=== PATIENT | female | born 1990 | race African-American/Black ===

== ENCOUNTER 2021-01-02 19:26 | Emergency (ER) | payer MEDICAID, SELFPAY ==
[2021-01-02 19:49] VITALS: BP 175/130; PULSE 88; RESP 16; TEMP 36.6; O2SAT 100; BMI 23.0
[2021-01-02] MEDS: Lidocaine HCl 1 % MPF 5 ML VIAL INFILTRATI (21:40)
[2021-01-02] MEDS: cephALEXin 500 MG CAPSULE PO (22:19)
--- NOTE | 2021-01-02 22:33 | ED_ITS ---
HPI - Skin/Abscess/Foreign Bdy General Chief complaint: Skin/Abscess/Foreign Body Stated complaint: piercing removal Time Seen by Provider: 01/02/21 21:33 Source: patient Mode of arrival: ambulatory Limitations: no limitations History of Present Illness HPI narrative: Patient is a piercing on the left cheek which has been coming out for last 2 months today she came as she has some pain and slight redness around it Related Data Previous Rx's Medication Instructions Recorded cephalexin 500 mg capsule 500 mg PO QID 7 Days #28 cap 01/02/21 Allergies Allergy/AdvReac Type Severity Reaction Status Date / Time No Known Allergies Allergy Verified 01/02/21 19:52 Review of Systems Review of Systems: Yes all other systems are reviewed and are negative [facility] Social History Social History Advance Directives: No Physical Exam Vital Signs: Vital Signs: Last Vital Signs Temp 98 F 01/02/21 19:49 Pulse 88 01/02/21 19:49 Resp 16 01/02/21 19:49 BP 175/130 H 01/02/21 19:49 Pulse Ox 100 01/02/21 19:49 Body Mass Index 23.0 HENMT: Face images: 1. Piercing almost hanging out with slight skin swelling and redness MDM - Skin/Abscess/Foreign Bdy MDM Narrative Medical decision making narrative: Pacing on the left cheek was removed using local wound infiltration with lidocaine 1% no significant pus discharge will discharge patient home on Keflex Procedures Foreign Body Removal Time Out Performed: yes Site: left and face Description of foreign body: bead Sedation/Analgesia: other (lidocaine locally) Technique: removal with forceps Confirmed by:: direct visualization Complications: none Post-procedure exam: awake, alert Discharge Plan Discharge Clinical Impression: Foreign body (FB) in soft tissue Patient Disposition: Home, Self-Care Instructions: Soft Tissue Foreign Body (ED) Additional Instructions: Local care as advised Take antibiotic as prescribed Prescriptions: New cephalexin 500 mg capsule 500 mg PO QID 7 Days Qty: 28 RF: 0
== END 2021-01-02 22:20 | disposition home or self-care (01) ==
PROVIDERS: Emergency Provider Internal Medicine
DX: L92.3 Foreign body granuloma of the skin and subcutaneous tissue (principal); R51.9 Headache, unspecified
CPT/HCPCS: 10120; 99283

== ENCOUNTER 2021-05-05 21:50 | Emergency (ER) | payer MEDICAID, SELFPAY ==
[2021-05-05 21:53] VITALS: BP 135/93; PULSE 98; RESP 14; TEMP 36.8; O2SAT 100; BMI 24.7
--- NOTE | 2021-05-05 22:16 | ED.EYEPROB ---
HPI - Eye Problem General Chief complaint: Eye Problems Stated complaint: eye infection Time Seen by Provider: 05/05/21 22:14 Source: patient Mode of arrival: ambulatory History of Present Illness HPI Narrative: 30-year-old female with no significant past medical history presenting to the ED complaining of right eye pain, irritation, tearing, and runny nose/allergies x today. admits to using OTC medications without relief. Denies on eye injury/trauma, foreign body, vision loss, ear pain, sore throat, fever. Denies wearing contacts or glasses chief complaint: eye pain Onset (ago): day(s) Related Data Previous Rx's Medication Instructions Recorded cephalexin 500 mg capsule 500 mg PO QID 7 Days #28 cap 01/02/21 olopatadine 0.1 % eye drops 1 drp OPHTHALMIC (EYE) BID 7 Days 05/05/21 #5 ml Allergies Allergy/AdvReac Type Severity Reaction Status Date / Time No Known Allergies Allergy Verified 05/05/21 21:51 Review of Systems Review of Systems: Constitutional: No Fever, No Chills, No Fatigue, No Malaise ENT/Mouth: No Ear Pain, No Nasal Congestion, No Sinus Pain, No sore throat, No Rhinorrhea, No Swallowing Difficulty Eyes: + Eye Pain, No Swelling, + Redness, No Foreign Body, + Discharge, + Vision Changes Cardiovascular: No Chest Pain, No SOB, No Palpitations Respiratory: No Cough, No Dyspnea Gastrointestinal: No Nausea, No Vomiting, No Diarrhea, No Constipation, No Abdominal pain Genitourinary: No Dysuria, No Hematuria, No Flank Pain Musculoskeletal: No joint pain, No Myalgias, No Joint Swelling Skin: No Skin Lesions, No rash Neuro: No Weakness, No Loss of Consciousness, No Dizziness, No Headache Yes all other systems are reviewed and are negative [facility] Past Medical History Attestation statement: The following information was validated with the patient. Social History Social History Advance Directives: No Advance Directives Information Provided: No Patient : No Physical Exam Vital Signs: Vital Signs: Last Vital Signs Temp 98.2 F 05/05/21 21:53 Pulse 98 05/05/21 21:53 Resp 14 05/05/21 21:53 BP 135/93 H 05/05/21 21:53 Pulse Ox 100 05/05/21 21:53 BMI result Body Mass Index 24.7 Const: General: cooperative, healthy appearing and no acute distress Orientation/consciousness: patient oriented x3 Limitations: no limitations HENMT: Head: Yes normal to inspection Ears: hearing grossly normal bilaterally General nose exam: Normal external nose present Face and sinus: Yes normal facial exam Eyes: Other: right eye periorbital irritation from rubbing General: appearance normal, both eyes and all related structures Conjunctivae: conjunctival abnormal ( mild conjunctival injection) Corneas: corneas normal and fluorescein used ( no fluorescein uptake. No appreciable ulceration) Pupils: Equal, round and reactive pupils present EOM: EOMs intact bilaterally ( without pain) Neck: Neck: Yes normal visual inspection and Yes no meningeal signs Resp: Effort & Inspection: normal respiratory effort and no respiratory distress Cardio: Rate: regular rate Heart sounds: S1 normal heart sound present and S2 normal heart sound present GI: Inspection: Yes normal to inspection Skin: Rashes: no rashes Wounds: no wounds Neuro: General: patient oriented x3 and no meningeal signs Cranial nerves: Yes Equal, round and reactive pupils present Gait exam (Neuro): Normal gait present Extrem: General: Yes normal to inspection Course Course Course Narrative: - no evidence of fluorescein uptake on exam MDM - Eye Problem MDM Narrative Medical decision making narrative: 30-year-old female with no significant past medical history presenting to the ED complaining of right eye pain, irritation, tearing, and runny nose/allergies x today. admits to using OTC medications without relief. on exam vital signs stable, NAD/ nontoxic, physical exam as above consistent with allergic / viral conjunctivitis. Low concern for bacterial conjunctivitis. Will stain to rule out corneal abrasion. Plan: Visual acuity, foreseen staining Differential Diagnosis Differential diagnosis: Likely conjunctivitis Medical Records Attestation: I reviewed the patient's medical records. Lab Data Attestation: I reviewed the patient's lab results. Discharge Plan Discharge Clinical Impression: Acute allergic conjunctivitis Qualifiers: Laterality: right Qualified Code(s): H10.11 - Acute atopic conjunctivitis, right eye Patient Disposition: Home, Self-Care Instructions: Conjunctivitis (ED), How to Use Eye Drops (ED) Additional Instructions: you have what appears to be an allergic conjunctivitis. Olopatadine jobs will help with the or irritation please follow-up with your biomedical instrument technician. If symptoms persist or worsen, you develop vision loss/ change please return to the emergency department Prescriptions: New olopatadine 0.1 % drops 1 drp ophthalmic (eye) BID 7 Days Qty: 5 RF: 0 No Action cephalexin 500 mg capsule 500 mg PO QID 7 Days Qty: 28 RF: 0 Referrals: Physician,Unknown J [Primary Care Provider] - 2 days
[2021-05-05] MEDS: Fluorescein Sodium STRIP 1 STRIP EYE-RIGHT (22:18)
[2021-05-05] MEDS: Tetracaine HCl/PF 0.5% Oph Sol 4 ML DROPS 3 DROP EYE-RIGHT (22:18)
--- NOTE | 2021-05-05 23:12 | PC.NURSE ---
PT REFUSED VISUAL IQ TEST STATED TO PAINFUL HER EYE BURNED TO MUCH PA AWARE.
== END 2021-05-05 23:15 | disposition home or self-care (01) ==
PROVIDERS: Emergency Provider Internal Medicine
DX: H10.11 Acute atopic conjunctivitis, right eye (principal); H57.11 Ocular pain, right eye
CPT/HCPCS: 99283

== ENCOUNTER 2021-06-08 06:07 | Emergency (ER) | payer BC, SELFPAY ==
[2021-06-08 06:12] VITALS: BP 140/100; PULSE 92; RESP 18; TEMP 36.8; O2SAT 100; BMI 23.0
--- NOTE | 2021-06-08 07:03 | ED.EYEPROB ---
HPI - Eye Problem General Chief complaint: Eye Problems Stated complaint: eye infection Time Seen by Provider: 06/08/21 06:41 Source: patient Mode of arrival: ambulatory Limitations: no limitations History of Present Illness HPI Narrative: Patient is a 30-year-old female with no significant past medical history. She presents to the emergency department for evaluation of bilateral eye is with burning, itching, clear drainage with a gritty sensation. She does report associated headache and runny nose consistent with her allergies, for which she is not taking any medication for. She was seen in the emergency department 1 month ago for similar complaints and was prescribed olopatadine eyedrops, without any significant improvement, and was advised to follow-up with her pharmacology teacher. She does not have a primary care provider nor an pharmacology teacher. Denies any vision loss or vision changes. Denies any purulent drainage or eyes being stuck shut in the morning. Denies swelling of the eyelids. Denies any trauma or foreign body to the eye. Does not wear contact lenses. She is supposed to wear eyeglasses but she has not seen an pharmacology teacher to have a prescription MD chief complaint: eye pain and eye redness Onset (ago): month(s) Duration: constant Location: both eyes Eye Symptoms: burning and itching Associated symptoms: headache and rhinorrhea Treatments Prior to Arrival: none Related Data Previous Rx's Medication Instructions Recorded cephalexin 500 mg capsule 500 mg PO QID 7 Days #28 cap 01/02/21 olopatadine 0.1 % eye drops 1 drp OPHTHALMIC (EYE) BID 7 Days 05/05/21 #5 ml cetirizine 10 mg tablet 10 mg PO DAILY 14 Days #14 tab 06/08/21 epinastine 0.05 % eye drops 1 drp OPHTHALMIC (EYE) Q12H 7 Days 06/08/21 #5 ml Allergies Allergy/AdvReac Type Severity Reaction Status Date / Time No Known Allergies Allergy Verified 06/08/21 06:12 Review of Systems Review of Systems: Constitutional: No fever, chills, fatigue. HEENT + bilateral eye itching and burning, rhinorrhea. No visual loss, blurred vision, double vision or yellow sclera. No hearing loss, sneezing, or sore throat. Skin: No rash or itching. Cardiovascular: No chest pain. No palpitations. Respiratory: No shortness of breath, cough or sputum production. Gastrointestinal: No nausea, vomiting or diarrhea. No abdominal pain. Genitourinary: No burning micturition. No urinary frequency or incontinence. Neurologic: No headache, dizziness. Musculoskeletal: No muscle pain, back pain, joint pain or stiffness. Hematologic: No bleeding or bruising. Lymphatics: No enlarged lymph nodes. Psychiatric:No depression or anxiety. . Yes all other systems are reviewed and are negative [facility] Past Medical History Attestation statement: The following information was validated with the patient. Source: old records reviewed Social History Social History Advance Directives: No Advance Directives Information Provided: No Patient : Yes Physical Exam Vital Signs: Vital Signs: Last Vital Signs Temp 98.2 F 06/08/21 07:18 Pulse 85 06/08/21 07:18 Resp 16 06/08/21 07:18 BP 139/90 H 06/08/21 07:18 Pulse Ox 96 06/08/21 07:18 BMI result Body Mass Index 23.0 Vital signs have been reviewed as normal and appeared to be correct. Blood pressure normal.? Heart rate normal.? Respiration rate normal. Temperature normal.? Oxygen saturation normal. Appearance: Alert.?Oriented to person, place and time. No acute distress.?Normal affect. Head: Normocephalic, atraumatic. No head, sinus or TMJ tenderness.? Eyes: Sclera white, with mild conjunctival injection. Cornea's normal, no fluorescein uptake. PERRL, 3 mm bilaterally. Visual mukherjee full to confrontation, EOMi.?No Nystagmus. Ears: Bilateral ear canals clear, TM visible with good cone of light.? Nose: Nasal mucosa pink and moist with midline septum, nares patent bilaterally.? Mouth/ Throat: Oral mucosa pink and moist without lesions. Pharynx without exudate, tonsils symmetric, no adenopathy.??? Neck: Normal inspection.? Neck supple.?? CVS: Heart sounds normal. Normal heart rate and rhythm.? Pulses normal.?? Respiratory: No respiratory distress.? Lung sounds clear to auscultation bilaterally?? Abdomen: Soft and non-tender. Skin: Skin warm and dry.? Normal skin color.? Extremities: No lower extremity edema.? Neuro: Moves all extremities spontaneously. Sensation intact bilaterally. CN II-XII intact. No focal neuro deficits. Ambulates with normal steady gait. Course Course Course Narrative: Patient is a 30-year-old female presenting to the emergency department for bilateral eye pain, burning, itching, tearing, rhinorrhea and allergies for 1 month. Symptoms unrelieved with antihistamine eyedrops previously. She is well appearing, nontoxic, with stable vital signs and in no apparent distress. Her history and physical exam are most consistent with allergic or viral conjunctivitis. At this time unlikely to be bacterial conjunctivitis. Will obtain visual acuity and fluorescein staining to exclude corneal abrasion. Reevaluation(s) Reevaluation #1: Corneas normal on exam, fluorescein used with no uptake, no appreciable ulceration. Discussed with patient plan of care for discharge home at this time with new prescription for Epinastine 0.05% 1 drop to each eye twice daily for 7 days and no longer as this may cause rebound vasodilation, in addition to cetirizine 10 mg daily and atrificial tears as needed. Visual acuity 20/30, reports that she is close to where corrective lenses but does not have a pair nor is she be followed by an pharmacology teacher. Patient is to contact local primary care providers in addition to Ophthalmology for further follow-up. Discussed reasons to return to the emergency department including new or worsening symptoms or concerns, vision loss/vision changes. Patient is agreeable with plan of care Discharge Plan Discharge Clinical Impression: Allergic conjunctivitis Patient Disposition: Home, Self-Care Instructions: Conjunctivitis (ED) Additional Instructions: Your symptoms are most consistent with an allergic conjunctivitis, although there may be a component of viral conjunctivitis associated with this. Please use epinastine 1 drop to both eyes twice daily for 7 days and no longer as it may worsen your symptoms with prolonged use, in addition please take Cetirizine orally daily. You may also find relief with using artificial tears that can be purchased [id number] as this will help with dry eyes. As we discussed please contact local primary care offices to establish care with a new provider, and contact local ophthalmologists to schedule an appointment. You may return to the emergency department with any new or worsening symptoms or concerns, or if you developed vision loss or vision changes please return to the emergency department. Prescriptions: New epinastine 0.05 % drops 1 drp ophthalmic (eye) Q12H 7 Days Qty: 5 0RF cetirizine 10 mg tablet 10 mg PO DAILY 14 Days Qty: 14 0RF No Action cephalexin 500 mg capsule 500 mg PO QID 7 Days Qty: 28 0RF olopatadine 0.1 % drops 1 drp ophthalmic (eye) BID 7 Days Qty: 5 0RF Rx Instructions: separate doses by at least 6-8 hours Stand Alone Forms: Work/School Release Interventions: ED Discharge Assessment Last Done: 06/08/21 08:15 Discharge Date/Time: 06/08/21 08:16
[2021-06-08 07:18] VITALS: BP 139/90; PULSE 85; RESP 16; TEMP 36.8; O2SAT 96
[2021-06-08] MEDS: Tetracaine HCl/PF 0.5% Oph Sol 4 ML DROPS 1 DROP EYE-BOTH (07:27)
[2021-06-08] MEDS: Fluorescein Sodium STRIP 1 STRIP EYE-BOTH (07:27)
--- NOTE | 2021-06-08 07:33 | PC.NURSE ---
resumed care of pt from myra dinero
== END 2021-06-08 08:16 | disposition home or self-care (01) ==
PROVIDERS: Emergency Provider Emergency Medicine
DX: H10.13 Acute atopic conjunctivitis, bilateral (principal); H57.13 Ocular pain, bilateral
CPT/HCPCS: 99283; 99284